=== PATIENT | male | born 1975 | race Two or more races ===

== ENCOUNTER 2018-03-28 09:00 | Outpatient (CLI) | payer OTHER | END 2018-03-28 09:06 | disposition home or self-care (01) | LOC: SONOGRAMA 09:00 | DX: E04.1 Nontoxic single thyroid nodule (principal) ==

== ENCOUNTER 2020-11-11 11:55 | Outpatient (CLI) | payer OTHER | END 2020-11-11 14:59 | disposition home or self-care (01) | LOC: SONOGRAMA 11:55 | PROVIDERS: ATTEND Pathology Anatomic Pathology & Clinical Pathology | DX: R22.1 Localized swelling, mass and lump, neck (principal) ==

== ENCOUNTER 2023-02-06 11:13 | Emergency (ER) | payer OTHER ==
[~2023-02-06] VITALS: Ht 167.6 cm; Wt 83.9 kg
== END 2023-02-06 15:51 | disposition home or self-care (01) ==
LOC: ER 11:13
DX: R00.2 Palpitations (principal); I10 Essential (primary) hypertension; I20.8 Other forms of angina pectoris